=== PATIENT | male | born 1975 | race Asian ===

== ENCOUNTER 2017-02-06 09:27 | Emergency (ER) | payer BC, MEDICAID ==
[2017-02-06] MEDS ORDERED: Aspirin 81 MG Tab.Chew PO ONE (09:30)
[2017-02-06] MEDS ORDERED: Lisinopril 10 MG Tab PO ONE (09:55)
--- NOTE | 2017-02-06 09:55 | EDM.PDOC ---
ED HPI GENERAL MEDICAL PROBLEM - General Chief Complaint: Chest Pain Stated Complaint: HEAVYNESS IN THE CHEST Time Seen by Provider: 02/06/17 09:40 Source of Information: Reports: Patient, Old Records, RN History Limitations: Reports: No Limitations - History of Present Illness INITIAL COMMENTS - FREE TEXT/NARRATIVE: 41 yo male with no hx of CAD and who takes lisinopril 20 mg daily for HTN presents with a 30+ minute duration of central chest heaviness with no associated sx's. He does not smoke. He has not missed any of his doses of lisinopril. No diabetes. Onset: Today Onset Date: 02/06/17 Onset Time: 09:00 Duration: Minutes:, Constant Location: Reports: Chest (central) Quality: Reports: Pressure (mild) Severity: Mild Improves with: Reports: None Worsens with: Reports: None Context: Reports: Other (unknown) Associated Symptoms: Reports: No Other Symptoms Treatments ROD DRAWER: Reports: Other (see below) (none) chest pain Pain Score (Numeric/FACES): 2 - Related Data Allergies Allergy/AdvReac Type Severity Reaction Status Date / Time No Known Allergies Allergy Verified 02/06/17 09:50 Home Meds: Home Meds Ibuprofen 800 mg PO TID PRN 01/21/15 [History] Lisinopril 20 mg PO DAILY 02/06/17 [History] Past Medical History Other Gastrointestinal History: bloody stools "a few weeks ago". Other Musculoskeletal History: Back injury 2011, no surgery, frequent leg cramps , sciatica - Past Surgical History GI Surgical History: Reports: Cholecystectomy Social & Family History - Tobacco Use Smoking Status *Q: Current Some Day Smoker Years of Tobacco use: 10 Packs/Tins Daily: 0.2 Used Tobacco, but Quit: Yes Month Tobacco Last Used: 5 years ago Second Hand Smoke Exposure: No - Recreational Drug Use Recreational Drug Use: No ED ROS GENERAL - Review of Systems Review Of Systems: See Below Constitutional: Reports: No Symptoms HEENT: Reports: No Symptoms Respiratory: Reports: No Symptoms Cardiovascular: Reports: Chest Pain Endocrine: Reports: No Symptoms GI/Abdominal: Reports: No Symptoms : Reports: No Symptoms Musculoskeletal: Reports: No Symptoms Skin: Reports: No Symptoms Neurological: Reports: No Symptoms ED EXAM, GENERAL - Physical Exam Exam: See Below Exam Limited By: No Limitations General Appearance: Alert, WD/WN, No Apparent Distress Eye Exam: Bilateral Eye: Normal Inspection Ears: Normal External Exam, Normal Canal, Hearing Grossly Normal Ear Exam: Bilateral Ear: Auricle Normal, Canal Normal Nose: Normal Inspection, Normal Mucosa, No Blood Throat/Mouth: Normal Inspection, Normal Lips, Normal Oropharynx, Normal Voice, No Airway Compromise Head: Atraumatic, Normocephalic Neck: Normal Inspection Respiratory/Chest: No Respiratory Distress, Lungs Clear, Normal Breath Sounds, No Accessory Muscle Use Cardiovascular: Regular Rate, Rhythm, No Edema, No Murmur GI/Abdominal: Normal Bowel Sounds, Soft, Non-Tender, No Distention Back Exam: Normal Inspection. No: CVA Tenderness (R), CVA Tenderness (L) Extremities: Normal Inspection, Normal Range of Motion, Non-Tender, No Pedal Edema Neurological: Alert, Oriented, CN II-XII Intact, Normal Cognition, No Motor/ Sensory Deficits Psychiatric: Normal Affect, Normal Mood Skin Exam: Warm, Dry, Intact, Normal Color, No Rash Lymphatic: No Adenopathy EKG INTERPRETATION EKG Date: 02/06/17 Time: 09:40 Rhythm: NSR Rate (Beats/Min): 69 [place]: Normal P-Wave: Present QRS: Normal ST-T: Normal QT: Normal Comparison: No Change Course - Vital Signs Text/Narrative:: Chest pain resolved in the ER without any tx, NTG had been ordered, but this order was cancelled. Ambulated in the ER after labs came back normal, no return of CP Will schedule for outpatient EST and increase his lisinopril from 20 mg to 40 mg qd. Last Recorded V/S: Last Vital Signs Temp 36 C 02/06/17 09:53 Pulse 63 02/06/17 10:15 Resp 8 L 02/06/17 10:15 BP 145/94 H 02/06/17 10:15 Pulse Ox 100 02/06/17 10:15 - Orders/Labs/Meds Orders: Active Orders 24 hr Category Date Time Status Cardiac Monitoring [RC] .As Directed Care 02/06/17 09:30 Active EKG Documentation Completion [RC] ASDIRECTED Care 02/06/17 09:30 Active EKG 12 Lead [EK] Routine Ther 02/06/17 09:30 Ordered Labs: Laboratory Tests 02/06/17 Range/Units 10:06 Sodium 139 L (140-148) mmol/L Potassium 3.9 (3.6-5.2) mmol/L Chloride 101 (100-108) mmol/L Carbon Dioxide 29 (21-32) mmol/L Anion Gap 12.9 (5.0-14.0) mmol/L BUN 12 (7-18) mg/dL Creatinine 1.0 (0.8-1.3) mg/dL Est Cr Clr Drug Dosing 105.63 mL/min Estimated GFR (MDRD) > 60 (>60) Glucose 89 (74-106) mg/dL Calcium 8.9 (8.5-10.1) mg/dL Troponin I < 0.017 (0.000-0.056) ng/mL Meds: Medications Discontinued Medications Generic Name Dose Route Start Last Admin Trade Name Freq PRN Reason Stop Dose Admin Aspirin 324 mg 02/06/17 09:30 02/06/17 10:00 Aspirin PO 02/06/17 09:31 324 mg ONETIME ONE Administration Lisinopril 20 mg 02/06/17 09:55 02/06/17 10:00 Prinivil PO 02/06/17 09:56 20 mg ONETIME ONE Administration Nitroglycerin 0.4 mg 02/06/17 10:00 Nitrostat SL Q5M PRN Chest Pain Departure - Departure Time of Disposition: 11:20 Disposition: Home, Self-Care 01 Condition: Good Clinical Impression: Atypical chest pain HTN (hypertension) Qualifiers: Hypertension type: essential hypertension Qualified Code(s): I10 - Essential ( primary) hypertension Referrals: PCP,None [Primary Care Provider] - Forms: ED Department Discharge - My Orders Last 24 Hours: My Active Orders 02/06/17 09:30 Cardiac Monitoring [RC] .As Directed EKG Documentation Completion [RC] ASDIRECTED EKG 12 Lead [EK] Routine - Assessment/Plan Last 24 Hours: My Active Orders 02/06/17 09:30 Cardiac Monitoring [RC] .As Directed EKG Documentation Completion [RC] ASDIRECTED EKG 12 Lead [EK] Routine
[2017-02-06 10:00] VITALS: BP 145/94
[2017-02-06] MEDS ORDERED: Nitroglycerin 0.4 MG Tab.SL SL PRN (10:00)
== END 2017-02-06 12:40 | disposition home or self-care (01) ==
LOC: JP.ED 09:27
DX: R07.89 Other chest pain (principal); I10 Essential (primary) hypertension; F17.210 Nicotine dependence, cigarettes, uncomplicated; Z79.899 Other long term (current) drug therapy
CPT/HCPCS: 36415; 80048; 84484; 93005; 99285; A9270

== ENCOUNTER 2017-10-30 07:52 | Day surgery (SDC) | payer BC ==
[2017-10-30] MEDS ORDERED: Propofol 200 MG/20 ML SDV ONE (08:18)
[2017-10-30] MEDS ORDERED: Midazolam 1 MG/ML 2 ML SDV ONE (08:18)
[2017-10-30] MEDS ORDERED: fentaNYL 100 MCG/2 ML SDV ONE (08:18)
[2017-10-30] MEDS: Lactated Ringers 1,000 ML IV SCH (08:30)
[2017-10-30 10:51] VITALS: BP 148/102
--- NOTE | 2017-10-30 11:48 | OR ---
DATE OF PROCEDURE: 10/30/2017 PREOPERATIVE DIAGNOSIS: Blood in the stool. POSTOPERATIVE DIAGNOSES: 1. Blood in the stool, etiology unknown. 2. Hemorrhoids. 3. Small right colon polyp. PROCEDURE PERFORMED: Colonoscopy to the cecum with biopsy resection of small right colon polyp. ANESTHESIA: IV anesthesia with monitored anesthesia care. SURGEON: Dennis Amaya MD INDICATION: This 42-year-old male is referred for a colonoscopy because of blood in the stool. I counseled him for the procedure including risks and alternatives, and he gave his informed consent to proceed. DESCRIPTION OF PROCEDURE: The patient was placed in the left lateral decubitus position. IV anesthesia was administered by the Anesthesia Service. Time-out was held. A rectal exam was performed, which was unremarkable. The flexible video Olympus colonoscope was introduced through his anus, up his rectum and out his colon, all the way to the cecum. En route, in the right colon, we saw a small polyp, which was removed with a few bites of the biopsy forceps. Once the cecum was reached, the scope was slowly withdrawn examining the mucosa throughout. No additional mucosal abnormalities were noted until we reached the rectum. Here, we retroflexed the scope, and the distal rectum demonstrated some internal hemorrhoids. The scope was straightened and removed. He tolerated the procedure well. We saw no old or new blood anywhere in the lower gastrointestinal tract. Dennis Amaya MD /[id number]
== END 2017-10-30 11:35 | disposition home or self-care (01) ==
LOC: JP.SDS 07:52
PROVIDERS: ATTEND Surgery
DX: K92.1 Melena (principal); D12.2 Benign neoplasm of ascending colon; K64.8 Other hemorrhoids; I10 Essential (primary) hypertension
CPT/HCPCS: 45380; J2250; J2704; J3010; J7120

== ENCOUNTER 2020-08-26 09:07 | Day surgery (SDC) | payer BC, MEDICAID ==
[2020-08-26] MEDS ORDERED: Sodium Chloride 0.9% 1,000 ML IV SCH (10:00)
[2020-08-26 10:33] LABS: CORONAVIRUS COVID-19 NAA NEGATIVE (NEGATIVE)
[2020-08-26] MEDS ORDERED: fentaNYL 100 MCG/2 ML SDV ONE ×2 (10:44→11:36)
[2020-08-26] MEDS ORDERED: Propofol 200 MG/20 ML SDV ONE ×2 (10:44→10:59)
[2020-08-26] MEDS ORDERED: Midazolam 1 MG/ML 2 ML SDV ONE ×2 (10:44→11:40)
[2020-08-26 13:15] VITALS: BP 153/102; PULSE 59
--- NOTE | 2020-08-26 15:17 | OR ---
DATE OF PROCEDURE: 08/26/2020 SURGEON: Cordell Lane MD PROCEDURES: 1. Esophagogastroduodenoscopy. 2. Colonoscopy. FINDINGS: 1. Mild inflammation at GE junction concerning for reflux disease (biopsied using cold biopsy forceps). 2. Ascending colon polyp, approximately 8 mm, completely removed using hot snare wire device. 3. No etiology for anemia. COMPLICATIONS: None. INVENTORY ASSISTANT: None. ANESTHESIA: MAC. PREOPERATIVE DIAGNOSIS: Anemia. POSTOPERATIVE DIAGNOSIS: Anemia. RISKS: Risks, benefits, alternatives, and limitations including but not limited to infection, bleeding, perforation, false positives and false negatives were explained to the patient and he wished to proceed. PROCEDURE IN DETAIL: The patient was placed in left lateral decubitus position. The EGD scope was introduced and advanced atraumatically to the second part of the duodenum. No evidence of duodenitis or ulceration. There was no gastritis or ulceration in the stomach or the duodenum. The GE junction showed some mild reflux concerning for reflux disease. This was biopsied multiple times using cold biopsy forceps. The remainder of the esophagus was inspected without abnormality. Digital rectal exam was performed without abnormality. Scope was introduced and advanced atraumatically to the ileocecal valve. A photo was taken of the appendiceal orifice. Scope was brought back to the ascending, transverse, descending colon, and retroflexed. No old or new blood. No diverticulosis. No masses. One small polyp. Greater than 8 minutes was spent removing the scope. The prep was acceptable, approximately 90% of the luminal surface could be seen. No etiology for the anemia. Cordell Lane MD /[id number]
== END 2020-08-26 13:10 | disposition home or self-care (01) ==
LOC: JP.SDS 09:07
PROVIDERS: ATTEND Surgery
DX: D64.9 Anemia, unspecified (principal); K63.5 Polyp of colon; I10 Essential (primary) hypertension; Z01.812 Encounter for preprocedural laboratory examination; Z20.822 Contact with and (suspected) exposure to COVID-19
CPT/HCPCS: 0241U; 43239; 45385; 88305; J2250; J2704; J3010; J7030

== ENCOUNTER 2021-10-11 15:03 | Emergency (ER) | payer MEDICAID ==
[2021-10-11 15:26] VITALS: BP 177/112; PULSE 86
== END 2021-10-11 16:53 | disposition home or self-care (01) ==
LOC: JP.ED 15:03
DX: F41.9 Anxiety disorder, unspecified (principal); I10 Essential (primary) hypertension; Z79.899 Other long term (current) drug therapy
CPT/HCPCS: 99283

== ENCOUNTER 2024-04-09 10:59 | Emergency (ER) | payer MEDICAID ==
[2024-04-09 12:01] LABS: CORONAVIRUS COVID-19 NAA NEGATIVE (NEGATIVE); INFLUENZA A NAA POSITIVE (NEGATIVE); INFLUENZA B NAA NEGATIVE (NEGATIVE); RESPIRATORY SYNCYTIAL VIR NAA NEGATIVE (NEGATIVE)
[2024-04-09] MEDS: Ibuprofen 600 MG Tab PO ONE (12:23)
[2024-04-09] MEDS: Cyclobenzaprine 10 MG Tab PO ONE (13:06)
[2024-04-09] MEDS: Oseltamivir 75 MG Cap PO ONE (13:06)
[2024-04-09 13:08] VITALS: BP 162/96; PULSE 92
[2024-04-09 13:08] LABS: APPEARANCE,URINE CLEAR (CLEAR); BILIRUBIN,URINE NEGATIVE (NEGATIVE); COLOR,URINE YELLOW (YELLOW); GLUCOSE,URINE NEGATIVE (NEGATIVE); KETONES,URINE 15 mg/dL (NEGATIVE); LEUKOCYTE ESTERASE,URINE NEGATIVE (NEGATIVE); NITRITE,URINE NEGATIVE (NEGATIVE); OCCULT BLOOD,URINE NEGATIVE (NEGATIVE); PROTEIN,URINE 30 mg/dL (NEGATIVE)
[2024-04-09 13:13] LABS: BACTERIA,URINE NOT SEEN; EPITHELIAL CELLS,URINE NOT SEEN; RBC,URINE NOT SEEN (0-5); WBC,URINE NOT SEEN (0-5)
[2024-04-09 13:14] LABS: AMORPHOUS SEDIMENT,URINE NOT SEEN; MUCUS,URINE MODERATE
[2024-04-09] MEDS: fentaNYL 100 MCG/2 ML SDV IM ONE (13:43)
== END 2024-04-09 14:42 | disposition home or self-care (01) ==
LOC: JP.ED 10:59
DX: J10.1 Influenza due to other identified influenza virus with other respiratory manifestations (principal); I10 Essential (primary) hypertension; Z90.49 Acquired absence of other specified parts of digestive tract; Z79.899 Other long term (current) drug therapy
CPT/HCPCS: 0241U; 81001; 96372; 99283; A9270; J3010